=== PATIENT | female | born 1975 | race Two or more races ===

== ENCOUNTER 2020-05-22 05:20 | Day surgery (SDC) | payer OTHER ==
[2020-05-22] MEDS ORDERED: PERCOCET 5-3251 EACH PO (13:20)
== END 2020-05-22 16:45 | disposition home or self-care (01) ==
LOC: CIR.AMB 05:20
PROVIDERS: ATTEND Surgery
DX: C20 Malignant neoplasm of rectum (principal); D12.9 Benign neoplasm of anus and anal canal; K62.82 Dysplasia of anus; Z20.822 Contact with and (suspected) exposure to COVID-19
CPT/HCPCS: 36561; 45171; C1751